=== PATIENT | male | born 1990 | race Two or more races ===

== ENCOUNTER 2016-08-06 05:32 | Emergency (ER) | payer SELFPAY ==
[2016-08-06] MEDS ORDERED: PREDNISONE 20 MG TABLET PO ONE (05:52)
[2016-08-06] MEDS ORDERED: IPRATROPIUM/ALBUTEROL 0.5-2.5 MG/3 ML AMPUL NEB ONE (05:52)
[2016-08-06] MEDS: ALBUTEROL SULFATE 0.083% NEB 2.5 MG/3 ML AMPUL NEB SCH ×2 (06:30→06:50)
--- NOTE | 2016-08-06 06:38 | RADIOLOGY REPORT (SQ) ---
EXAM DESCRIPTION: CHEST PA/LAT COMPLETED DATE/TIME: 08/06/2016 6:23 am REASON FOR STUDY: difficulty breathing COMPARISON: None. EXAM PARAMETERS: NUMBER OF VIEWS: two views TECHNIQUE: Digital Frontal and Lateral radiographic views of the chest acquired. RADIATION DOSE: NA LIMITATIONS: none FINDINGS: LUNGS AND PLEURA: No opacities, masses or pneumothorax. No pleural effusion. MEDIASTINUM AND HILAR STRUCTURES: No masses or contour abnormalities. HEART AND VASCULAR STRUCTURES: Heart normal size. No evidence for failure. BONES: No acute findings. HARDWARE: None in the chest. OTHER: No other significant finding. IMPRESSION: NO SIGNIFICANT RADIOGRAPHIC FINDING IN THE CHEST. TECHNICAL DOCUMENTATION: JOB ID: [id number] [employer]- All Rights Reserved
--- NOTE | 2016-08-06 06:59 | ER Document Report ---
ED Respiratory Problem - General Mode of Arrival: Medic Information source: Patient TRAVEL OUTSIDE OF THE [place] IN LAST 30 DAYS: No - HPI Patient complains to provider of: Asthma Onset: Just prior to arrival Duration: Better Initiating Event: Other - Inhalers left out of town Context: Hx asthma. denies: Smoker Sputum amount: Small Sputum color: Clear Associated symptoms: Congestion, Cough <PARISH WALKER - Last Filed: 08/06/16 07:08> <VERNELL HAMPTON - Last Filed: 08/06/16 08:51> - General Chief Complaint: Shortness Of Breath Stated Complaint: TROUBLE BREATHING Time Seen by Provider: 08/06/16 06:50 Notes: Patient is a 26-year-old male presenting to the emergency department concerned of asthma attack onset just prior to arrival. Patient has a history of asthma, and usually uses his inhaler 2 times per day, but he left his inhalers and Mcdonald. Patient thinks that his cold symptoms may have contributed to this asthma flare-up. Patient admits to cough with a small amount of clear sputum. Patient has been given 2 breathing treatments since he is been here in the emergency department, and he states that he is beginning to feel much better. (PARISH WALKER) - Related Data Allergies/Adverse Reactions: No Known Drug Allergies Allergy (Verified 08/06/16 06:34) Home Medications: Current Home Medications Albuterol Sulfate [Proair Hfa Inhalation Aerosol 8.5 gm Mdi] 2 puff IH BID 08/06 [History] Albuterol Sulfate [Proair Hfa Inhalation Aerosol 8.5 gm Mdi] 2 puff IH Q4 PRN [History] Past Medical History - General Information source: Patient - Social History Smoking Status: Never Smoker Frequency of alcohol use: None Drug Abuse: None Family History: Reviewed & Not Pertinent Patient has suicidal ideation: No Patient has homicidal ideation: No Pulmonary Medical History: Reports: Hx Asthma Surgical Hx: Negative <PARISH WALKER - Last Filed: 08/06/16 07:08> Review of Systems - Review of Systems Constitutional: No symptoms reported EENT: No symptoms reported Cardiovascular: No symptoms reported Respiratory: See HPI, Cough, Short of breath, Sputum - small amount, clear, Wheezing Gastrointestinal: No symptoms reported Genitourinary: No symptoms reported Male Genitourinary: No symptoms reported Musculoskeletal: No symptoms reported Skin: No symptoms reported Hematologic/Lymphatic: No symptoms reported Neurological/Psychological: No symptoms reported -: Yes All other systems reviewed and negative <PARISH WALKER - Last Filed: 08/06/16 07:08> Physical Exam - General General appearance: Appears well, Alert - HEENT Head: Normocephalic, Atraumatic Eyes: Normal Pupils: PERRL - Respiratory Respiratory status: No respiratory distress Chest status: Nontender Breath sounds: Rhonchi, Wheezing Chest palpation: Normal - Cardiovascular Rhythm: Regular Heart sounds: Normal auscultation Murmur: No - Abdominal Inspection: Morbidly Obese Tenderness: Nontender - Back Back: Normal, Nontender - Extremities General upper extremity: Normal inspection, Nontender General lower extremity: Normal inspection, Nontender - Neurological Neuro grossly intact: Yes Cognition: Normal Orientation: AAOx4 Lagrange Coma Scale Eye Opening: Spontaneous Lagrange Coma Scale Verbal: Oriented Juan Coma Scale Motor: Obeys Commands Lagrange Coma Scale Total: 15 Speech: Normal - Psychological Associated symptoms: Normal affect, Normal mood - Skin Skin Temperature: Warm Skin Moisture: Dry Skin Color: Normal <PARISH WALKER - Last Filed: 08/06/16 07:08> Course <PARISH WALKER - Last Filed: 08/06/16 07:08> - Diagnostic Test Radiology reviewed: Image reviewed, Reports reviewed - Chest x-ray is unremarkable <VERNELL HAMPTON - Last Filed: 08/06/16 08:51> - Re-evaluation Re-evalutation: 08/06/16 07:56 Wheezes have cleared. There is some rhonchi mostly on the right side with forced cough. Patient states his breathing feels back to normal and he is ready to go. (VERNELL HAMPTON) - Vital Signs Vital signs: Temp Pulse Resp BP Pulse Ox 97.6 F 83 22 H 132/79 H 96 08/06/16 08:04 08/06/16 08:04 08/06/16 06:30 08/06/16 08:04 08/06/16 08:04 Discharge <PARISH WALKER - Last Filed: 08/06/16 07:08> <VERNELL HAMPTON - Last Filed: 08/06/16 08:51> - Discharge Clinical Impression: Asthmatic bronchitis with acute exacerbation Condition: Stable Disposition: HOME, SELF-CARE Additional Instructions: Bronchitis with Bronchospasm (Wheezing): You have bronchitis with bronchospasm (wheezing). Sometimes people develop wheezing with a chest cold. This occurs either because of an underlying tendency toward asthma or because the virus itself irritates the bronchial tubes. This irritation causes cough, shortness of breath, and wheezing. Emergency treatment of bronchospasm may include adrenaline shots or bronchodilator aerosol. You may feel lightheaded and have a rapid pulse for an hour or two. Rest and get plenty of fluids. At home, we'll treat you with a bronchodilator inhaler. Corticosteroids may be required for some patients. Until you recover, avoid chemical fumes, dusts, pollens, and exercising in very cold or dry air. If you smoke, stop now! Most cases of bronchitis get better without antibiotics. We prescribe antibiotics when we believe bacteria are damaging your airways, or if there's high risk the bronchitis will worsen into pneumonia. Increase your fluid intake. A cool mist humidifier may make your lungs more comfortable. An expectorant (cough medicine that loosens phlegm) can help. Repeated episodes of bronchitis and bronchospasm may result in lung damage -- for example, chronic bronchitis, recurrent pneumonias, or emphysema. If you develop a fever, increased wheezing, chest pain, or severe shortness of breath, you should contact the doctor immediately. START THE PREDNISONE TOMORROW. USE THE INHALER NEEDED FOR WHEEZING. FOLLOW UP WITH A PRIMARY CARE PROVIDER TO MANAGE YOUR ASTHMA. RETURN TO THE EMERGENCY ROOM IF ANY NEW OR WORSENING SYMPTOMS. Prescriptions: Albuterol Sulfate [Proair HFA] 1 - 2 puff IH Q4 PRN #1 inhaler PRN Reason: Prednisone [Deltasone 10 mg Tablet] 10 mg PO ASDIR PRN #21 tablet PRN Reason: Forms: Return to Work Scribe Attestation: 08/06/16 07:56 I personally performed the services described in the documentation, reviewed and edited the documentation which was dictated to the scribe in my presence, and it accurately records my words and actions. (VERNELL HAMPTON) Scribe Documentation - Scribe Written by Edmundo:: Edmundo Pacheco, 08/06/2016 0658 acting as scribe for :: Keerthi <PARISH WALKER - Last Filed: 08/06/16 07:08>
[2016-08-06] MEDS ORDERED: ALBUTEROL SULFATE HFA (90 MCG/PUFF) 8 GM MDI (1 MDI/ER DISP) IH ONE (07:56)
[2016-08-06 08:34] VITALS: BP 132/79
== END 2016-08-06 08:15 | disposition home or self-care (01) ==
LOC: ER 05:32
DX: J45.901 Unspecified asthma with (acute) exacerbation (principal); R05 Cough; R06.02 Shortness of breath; Z79.899 Other long term (current) drug therapy
CPT/HCPCS: 94640 ×2; 99284; 71020; J7512; J3490; J7620

== ENCOUNTER 2016-09-09 21:55 | Emergency (ER) | payer SELFPAY ==
[2016-09-09] MEDS ORDERED: IPRATROPIUM/ALBUTEROL 0.5-2.5 MG/3 ML AMPUL NEB ONE (23:52)
[2016-09-09] MEDS ORDERED: METHYLPREDNISOLONE INJ 125 MG/2 ML SDV IV ONE (23:52)
[2016-09-10] MEDS: MAGNESIUM SULFATE/D5W 100 ML IV SCH ×2 (00:10→00:12)
[2016-09-10] MEDS ORDERED: IPRATROPIUM/ALBUTEROL 0.5-2.5 MG/3 ML AMPUL NEB ONE (00:19)
--- NOTE | 2016-09-10 00:40 | ER Document Report ---
ED General - General Chief Complaint: Cough Stated Complaint: COUGH AND ABDOMINAL PAIN Time Seen by Provider: 09/09/16 23:37 Notes: Patient is a 26-year-old male presents with complaint of asthma. Patient says he just recently got over cold. He continues to cough and has some difficulty breathing. He has been using breathing treatments at home. He has had no fevers. No vomiting. He says he feels that the breathing treatments are not really taking why he has recurrent cough and shortness of breath. Patient says that he also feels like his left side of his abdomen increases in size whenever he bends or moves certain way. He feels that he may have a hernia. He has no swelling or pain into the inguinal area. He has never had a hernia before. No recent abdominal surgeries. TRAVEL OUTSIDE OF THE [place] IN LAST 30 DAYS: No - Related Data Allergies/Adverse Reactions: No Known Drug Allergies Allergy (Verified 08/06/16 06:34) Past Medical History - Social History Smoking Status: Former Smoker Frequency of alcohol use: None Drug Abuse: None Family History: Reviewed & Not Pertinent Patient has suicidal ideation: No Patient has homicidal ideation: No Pulmonary Medical History: Reports: Hx Asthma Renal/ Medical History: Denies: Hx Peritoneal Dialysis Review of Systems - Review of Systems Notes: My Normal Review Basic REVIEW OF SYSTEMS: CONSTITUTIONAL : Denies fever, chills, or sweats. Denies recent illness. EENT: Denies eye, ear, throat, or mouth pain or symptoms. Denies nasal or sinus congestion. CARDIOVASCULAR: Denies chest pain. RESPIRATORY: Recurrent cough. Difficulty breathing. GASTROINTESTINAL: Denies abdominal pain. Denies nausea, vomiting, or diarrhea. Denies constipation. GENITOURINARY: Denies difficulty urinating, painful urination, burning, frequency, or blood in urine. FEMALE GENITOURINARY: Denies vaginal bleeding, abnormal or irregular periods. LMP: MUSCULOSKELETAL: Denies neck or back pain or joint pain or swelling. SKIN: Denies rash or skin lesions. NEUROLOGICAL: Denies altered mental status or loss of consciousness. Denies headache. Denies weakness or paralysis or loss of use of either side. Denies problems with gait or speech. Denies sensory or motor loss.SYCHIATRIC: Denies anxiety or stress or depression. ALL OTHER SYSTEMS REVIEWED AND NEGATIVE. Physical Exam - Vital signs Vitals: Temp Pulse Resp BP Pulse Ox 97.8 F 98 18 149/109 H 95 09/09/16 22:00 09/09/16 22:00 09/09/16 22:00 09/09/16 22:00 09/09/16 22:00 - Notes Notes: General Appearance: Well nourished, alert, cooperative, no acute distress, no obvious discomfort. Recurrent cough during exam. Vitals: reviewed, See vital signs table. Head: no swelling or tenderness to the head Eyes: PERRL, EOMI, Conjuctiva clear Mouth: No decreasd moisture Throat: No tonsillar inflammation, No airway obstruction, No lymphadenopathy Neck: Supple, no neck tenderness, No thyromegaly Lungs: No wheezing, No rales, No rhonci, No accessory muscle use, diminished air exchange bilaterally. Heart: Normal rate, Regular rythm, No murmur, no rub Abdomen: Normal BS, soft, No rigidity, No abdominal tenderness, No guarding, no rebound, no abdominal masses, no organomegaly Extremities: strength 5/5 in all extremities, good pulses in all extremities, no swelling or tenderness in the extremities, no edema. Skin: warm, dry, appropriate color, no rash Neuro: speech clear, oriented x 3, normal affect, responds appropriately to questions. Course - Re-evaluation Re-evalutation: 09/10/16 01:17 On reevaluation patient is moving her lipid better. Now that he is moving air I can hear wheezing. I will wait approximately 15-20 minutes and give him more breathing treatments. 09/10/16 03:26 Patient's lung braun now have very good air exchange. He just has very slight wheezing. He looks and feels much improved. I will discharge him home on prednisone as well as give him albuterol inhaler in case he runs out of his other one. Encouraged to return to the ER immediately if he has worsening difficulty breathing or feels unwell. Patient was concerned for hernia. Patient is obese and had difficulty palpating in being able to rule out a hernia and therefore CT scan was obtained which was negative. I informed the patient if he develops any bulge or pain in his abdomen that does not immediately improve that he should return to ER immediately. Patient understands and agrees with plan. Dictation of this chart was performed using voice recognition software; therefore, there may be some unintended grammatical errors. - Vital Signs Vital signs: Temp Pulse Resp BP Pulse Ox 98.3 F 94 20 150/87 H 95 09/10/16 01:42 09/10/16 01:42 09/10/16 01:42 09/10/16 01:42 09/10/16 01:42 Discharge - Discharge Clinical Impression: Bronchitis Condition: Good Disposition: HOME, SELF-CARE Additional Instructions: BRONCHITIS WITH BRONCHOSPASM (WHEEZING): You have bronchitis with bronchospasm (wheezing). Sometimes people develop wheezing with a chest cold. This occurs either because of an underlying tendency toward asthma or because the virus itself irritates the bronchial tubes. This irritation causes cough, shortness of breath, and wheezing. Emergency treatment of bronchospasm may include adrenaline shots or bronchodilator aerosol. You may feel lightheaded and have a rapid pulse for an hour or two. Rest and get plenty of fluids. At home, we'll treat you with a bronchodilator inhaler. Corticosteroids may be required for some patients. Until you recover, avoid chemical fumes, dusts, pollens, and exercising in very cold or dry air. If you smoke, stop now! Most cases of bronchitis get better without antibiotics. We prescribe antibiotics when we believe bacteria are damaging your airways, or if there's high risk the bronchitis will worsen into pneumonia. Increase your fluid intake. A cool mist humidifier may make your lungs more comfortable. An expectorant (cough medicine that loosens phlegm) can help. Repeated episodes of bronchitis and bronchospasm may result in lung damage -- for example, chronic bronchitis, recurrent pneumonias, or emphysema. If you develop a fever, increased wheezing, chest pain, or severe shortness of breath, you should contact the doctor immediately. INHALED BRONCHODILATORS: You have received a treatment of and/or prescription for an inhaled bronchodilator -- a medication which stimulates the airways in the lung to dilate. This improves the flow of air in asthma, bronchitis, and emphysema. These medicines have some similarity to adrenaline, and can cause similar side effects: shakiness, racing heart, and a sense of nervousness. These side effects decrease with time. Contact your doctor if these side effects are severe. Do not over-use the medicine. Too-frequent use of the inhaler may make it ineffective. Call your doctor if the inhaler is not controlling your symptoms at the prescribed doses. STEROID MEDICATION: You have been given an injection of or oral medicine of the cortisone/ steroid class. This medication is used to control inflammation or allergy. Madi t is usually only given for a short period of time, until the acute process subsides. There are usually no side effects from short-term use of cortisone-like medications. Some persons feel an increased sense of well-being and are not sleepy at bedtime. Long-term use of cortisone medications is best avoided, unless required for a severe condition. If your condition does not remit, or relapses after the course of corticosteroid medication, you should consult your physician. SMOKING: If you smoke, you should stop smoking. The tar and chemicals in cigarette smoke are harmful. Smoking has been shown to cause: emphysema chronic bronchitis lung cancer mouth and throat cancer stomach and pancreas cancer premature aging defects In addition, smoking increases ear and lung infections in children of smokers. FOLLOW-UP CARE: If you have been referred to a physician for follow-up care, call the physician s office for an appointment as you were instructed or within the next two days. If you experience worsening or a significant change in your symptoms, notify the physician immediately or return to the Emergency Department at any time for re-evaluation. Please use your inhaler as needed up to every 2 hours. Please stay away form all cigarette smoke including second hand smoke. Your CT scan did not show evidence of Hernia. You still can develop a hernia in the future with recurrent coughing. Please return to the ER immediately if you develop a buldge in your abdominal wall that is painful or does not immediately go away. Return to the ER immediately if you have recurrent difficulty breathing or wheezing not improving with your inhaler. Prescriptions: Prednisone [Deltasone 20 mg Tablet] 3 tab PO DAILY 4 Days
--- NOTE | 2016-09-10 01:00 | RADIOLOGY REPORT (SQ) ---
EXAM DESCRIPTION: CHEST SINGLE VIEW COMPLETED DATE/TIME: 09/10/2016 12:48 am REASON FOR STUDY: cough. Difficulty breathing COMPARISON: 08/06/2016. EXAM PARAMETERS: NUMBER OF VIEWS: One view. TECHNIQUE: Single frontal radiographic view of the chest acquired. RADIATION DOSE: NA LIMITATIONS: None. FINDINGS: LUNGS AND PLEURA: No opacities, masses or pneumothorax. No pleural effusion. MEDIASTINUM AND HILAR STRUCTURES: No masses. Contour normal. HEART AND VASCULAR STRUCTURES: Heart normal in size. Normal vasculature. BONES: No acute findings. HARDWARE: None in the chest. OTHER: No other significant finding. IMPRESSION: NO ACUTE RADIOGRAPHIC FINDING IN THE CHEST. TECHNICAL DOCUMENTATION: JOB ID: [id number]
--- NOTE | 2016-09-10 01:01 | RADIOLOGY REPORT (SQ) ---
EXAM DESCRIPTION: CT LTD RENAL STONE PROTOCOL ON COMPLETED DATE/TIME: 09/10/2016 12:45 am REASON FOR STUDY: Left flank pain COMPARISON: None. TECHNIQUE: CT scan of the abdomen and pelvis performed without intravenous or oral contrast. Images reviewed with lung, soft tissue, and bone windows. Reconstructed coronal and sagittal MPR images revi ewed. All images stored on PACS. All CT scanners at this facility use dose modulation, iterative reconstruction, and/or weight based d osing when appropriate to reduce radiation dose to as low as reasonably achievable (ALARA). [facility]: Dose Right [facility]: CareDose [facility]: Dose Right [facility]: Teradose 4D [facility]: Smart Minted RADIATION DOSE: Up-to-date CT equipment and radiation dose reduction techniques were employed. CTDIv ol: 9.6 mGy. DLP: 519 mGy-cm.mGy. LIMITATIONS: None. FINDINGS: LOWER CHEST: No significant findings. No nodules or infiltrates. NON-CONTRASTED LIVER, SPLEEN, ADRENALS: Evaluation limited by lack of IV contrast. No identified sign ificant masses. PANCREAS: No masses. No peripancreatic inflammatory changes. GALLBLADDER: No identified stones by CT criteria. No inflammatory changes to suggest cholecystitis. RIGHT KIDNEY AND URETER: No suspicious masses. Assessment limited by lack of IV contrast. No signif icant calcifications. No hydronephrosis or hydroureter. LEFT KIDNEY AND URETER: No suspicious masses. Assessment limited by lack of IV contrast. No signifi cant calcifications. No hydronephrosis or hydroureter. AORTA AND RETROPERITONEUM: No aneurysm. No retroperitoneal masses or adenopathy. BOWEL AND PERITONEAL CAVITY: No obvious masses or inflammatory changes. No free fluid. APPENDIX: Normal. PELVIS, BLADDER, AND ABDOMINAL WALL:No abnormal masses. No free fluid. Bladder normal. BONES: No significant findings. OTHER: No other significant finding. IMPRESSION: NO SIGNIFICANT OR ACUTE PROCESS IN THE ABDOMEN OR PELVIS. TECHNICAL DOCUMENTATION: JOB ID: [id number] Quality ID # [id number]: Final reports with documentation of one or more dose reduction techniques (e.g., Au tomated exposure control, adjustment of the mA and/or kV according to patient size, use of iterative reconstruction technique) 2010 [employer]- All Rights Reserved
[2016-09-10] MEDS ORDERED: ALBUTEROL SULFATE 0.083% NEB 2.5 MG/3 ML AMPUL NEB ONE (01:51)
[2016-09-10] MEDS ORDERED: ALBUTEROL SULFATE HFA (90 MCG/PUFF) 8 GM MDI (1 MDI/ER DISP) IH ONE (03:26)
[2016-09-10 03:47] VITALS: BP 134/93
== END 2016-09-10 03:47 | disposition home or self-care (01) ==
LOC: ER 21:55
DX: J40 Bronchitis, not specified as acute or chronic (principal); R05 Cough; R10.9 Unspecified abdominal pain; J45.909 Unspecified asthma, uncomplicated; Z87.891 Personal history of nicotine dependence; R06.02 Shortness of breath
CPT/HCPCS: 94640 ×2; 99284; 96375; 96365; 71010; 76380; J2930; J3475; J3490; J7620

== ENCOUNTER 2017-03-29 23:37 | Emergency (ER) | payer SELFPAY ==
[2017-03-30] MEDS ORDERED: ALBUTEROL SULFATE HFA (90 MCG/PUFF) 8 GM MDI (1 MDI/ER DISP) IH PRN (01:46)
--- NOTE | 2017-03-30 01:46 | ER Document Report ---
ED Respiratory Problem - General Chief Complaint: Shortness Of Breath Stated Complaint: SHORTNESS OF BREATH Time Seen by Provider: 03/30/17 01:45 Mode of Arrival: Ambulatory Information source: Patient Notes: Patient is a 26-year-old asthmatic male who presents to the ER today via EMS for asthma exacerbation. Patient states that he started having shortness of breath and wheezing today. He does not have any albuterol at home as he just moved to the area. Patient received albuterol and Solu-Medrol on the ambulance and now is clear and feels much better. Patient denies any recent sick symptoms , fever, chills. TRAVEL OUTSIDE OF THE [place] IN LAST 30 DAYS: No - Related Data Allergies/Adverse Reactions: No Known Drug Allergies Allergy (Verified 08/06/16 06:34) Past Medical History - General Information source: Patient - Social History Smoking Status: Never Smoker Family History: Reviewed & Not Pertinent Pulmonary Medical History: Reports: Hx Asthma Renal/ Medical History: Denies: Hx Peritoneal Dialysis Review of Systems - Review of Systems Constitutional: No symptoms reported EENT: No symptoms reported Cardiovascular: No symptoms reported Respiratory: See HPI Gastrointestinal: No symptoms reported Genitourinary: No symptoms reported Male Genitourinary: No symptoms reported Musculoskeletal: No symptoms reported Skin: No symptoms reported Hematologic/Lymphatic: No symptoms reported Neurological/Psychological: No symptoms reported Physical Exam - Vital signs Vitals: Temp Pulse Resp BP Pulse Ox 98.2 F 74 16 124/74 98 03/30/17 02:00 03/30/17 02:00 03/30/17 02:00 03/30/17 02:00 03/30/17 02:00 - Notes Notes: PHYSICAL EXAMINATION: GENERAL: Well-appearing and in no acute distress. HEAD: Atraumatic, normocephalic. EYES: Pupils equal round and reactive to light, extraocular movements intact, sclera anicteric, conjunctiva are normal. ENT: ear canals without erythema or foreign body, TMs pearly dee with good bony landmarks, nares patent, oropharynx clear without exudates. Moist mucous membranes. NECK: Normal range of motion, supple without lymphadenopathy LUNGS: CTAB and equal. No wheezes rales or rhonchi. HEART: Regular rate and rhythm without murmurs ABDOMEN: Soft, no tenderness. No guarding, no rebound BACK: no vertebral tenderness, normal ROM GI/: no CVA tenderness EXTREMITIES: Normal range of motion, no pitting edema. No cyanosis. NEUROLOGICAL: Cranial nerves grossly intact. Normal sensory/motor exams. PSYCH: Normal mood, normal affect. SKIN: Warm, Dry, normal turgor, no rashes or lesions noted Course - Re-evaluation Re-evalutation: 03/31/17 01:28 On discharge patient asked for something for anxiety. I will send patient home with albuterol inhaler from this emergency department. - Vital Signs Vital signs: Temp Pulse Resp BP Pulse Ox 98.2 F 74 16 124/74 98 03/30/17 02:00 03/30/17 02:00 03/30/17 02:00 03/30/17 02:00 03/30/17 02:00 Discharge - Discharge Clinical Impression: Asthma attack Qualifiers: Asthma severity: unspecified severity Asthma persistence: unspecified Qualified Code(s): J45.901 - Unspecified asthma with (acute) exacerbation Condition: Stable Disposition: HOME, SELF-CARE Additional Instructions: Return immediately for any new or worsening symptoms. Follow up with primary care provider, call tomorrow to make followup appointment. Prescriptions: Prednisone [Deltasone 20 mg Tablet] 3 tab PO DAILY 5 Days tablet
[2017-03-30] MEDS ORDERED: HYDROXYZINE PAMOATE 25 MG CAPSULE (4 CAP/ER DISP) PO PRN (02:05)
[2017-03-30 02:38] VITALS: BP 124/74
== END 2017-03-30 02:30 | disposition home or self-care (01) ==
LOC: ER 23:37
DX: J45.901 Unspecified asthma with (acute) exacerbation (principal)
CPT/HCPCS: 99285; J3490 ×2